=== PATIENT | female | born 1995 | race Caucasian/White ===

== ENCOUNTER 2018-09-06 12:31 | Emergency (ER) | payer OTHER ==
--- NOTE | 2018-09-06 12:46 | EDPHY ---
H & P Stated Complaint: migraine Time Seen by Provider: 09/06/18 12:46 - Personal History LMP (Females 10-55): IUD In Place Current Tetanus Diphtheria and Acellular Pertussis (TDAP): Yes - Medical/Surgical History Hx Asthma: No Hx Chronic Respiratory Disease: No Hx Diabetes: No Hx Cardiac Disease: No Hx Renal Disease: No Hx Cirrhosis: No Hx Alcoholism: No Hx HIV/AIDS: No Other PMH: TONSILECTOMY, OVARIAN CYSTS, CONCUSSION X 5, VOCAL CORD DYSFUNCTION, GASTRITIS, migraines - Social History Smoking Status: Never smoked Constitutional: Initial Vital Signs Temperature (C) 36.9 C 09/06/18 12:39 Heart Rate 67 09/06/18 12:39 Respiratory Rate 16 09/06/18 12:39 Blood Pressure 110/67 09/06/18 12:39 O2 Sat (%) 96 09/06/18 12:39 O2 Delivery Mode Room Air Allergies/Adverse Reactions: No Known Allergies Allergy (Unverified 04/22/18 20:43) Home Medications: Medication Instructions Recorded Excedrin Tablet (*) 04/22/18 Lexapro 04/22/18 Zantac 04/22/18 SUMAtriptan 09/06/18 Medical Decision Making ED Course/Re-evaluation: CHIEF COMPLAINT: "I've had a bad headache migraine" HISTORY OF PRESENT ILLNESS: The patient is a 22 y/o female complaining of a persistent headache that began on Sunday, 3 days ago. Her headache is located in both temples and extends down towards her occiput. The pain came on gradually over the day. She noticed she was "sensitive to everything" especially sound and "felt really overwhelmed. " She has associated nausea and has vomited a couple times. She took Sumatriptan without improvement. She has experienced prior similar headaches and sees a neurologist for the migraines. She believes the headache began due to stress as she has two large tests next week. No fever,body aches, lightheadedness, chest pain, heart palpitations, shortness of breath, cough, abdominal pain, urinary or bowel complaints, numbness, paresthesias. PHYSICAL EXAM: HR, BP, O2 Sat, RR. Temp noted General Appearance: Alert, sitting in a dark room, well hydrated, appropriate, and non-toxic appearing. Head: Atraumatic without scalp tenderness or obvious injury Eyes: Pupils equal, round, reactive to light and accommodation, EOMI, no trauma , no injection. Ears: Clear bilaterally, no perforation, normal landmarks Nose: Atraumatic, no rhinorrhea, clear. Throat: There is no erythema or exudates, no lesions, normal tonsils, mucus membranes moist. Neck: Supple, 2+ carotid upstroke, nontender, no lymphadenopathy. Respiratory: No retractions, no distress, no wheezes, and no accessory muscle use. Lungs are clear to auscultation bilaterally. Cardiovascular: Regular rate and rhythm, no murmurs, rubs, or gallops. Bilateral carotid, radial, dorsalis pedis, and posterior tibial pulses intact. Good capillary refill all extremities. Gastrointestinal: Abdomen is soft, nontender, non-distended, no masses, no rebound, no guarding, no peritoneal signs. Musculoskeletal: Normal active ROM of all extremities, atraumatic. Neurological: Alert, appropriate, and interactive. The patient has normal DTRs and non-focal cranial nerves, motor, sensory, and cerebellar exam. Skin: No rashes, good turgor, no nodules on palpation. Past medical history: Depression, anxiety, ADD, migraines Past surgical history: Denies Family history: Denies Social history: Student at , single, lives in [place] DIAGNOSTICS/PROCEDURES/CRITICAL CARE TIME: Not indicated. DIFFERENTIAL DIAGNOSIS: The differential diagnosis for the patient's headache included but was not limited to subarachnoid hemorrhage, migraine headache, tension headache and infectious causes such as meningitis, pharyngitis and sinusitis. MEDICAL DECISION MAKING: This is a 22 y/o female with a history of migraines (Sumatriptan) who presents with a 2-day history of a migraine headache. She has a completely normal exam although she is sitting in a dark room. No indication for imaging at this time. Plan for IV and symptomatic management with migraine cocktail. 1L IV NS, 25mg IV Benadryl, 10mg IV Reglan, and 30mg IV Toradol. 1330: Reassessed patient, her headache has almost completely resolved and she is no long nauseated. We will continue to observe until her headache has completely resolved. 1405: Reassessed patient. She is feeling completely better, no remaining headaches. Plan to discharge home in good condition with referral to neurologist for further evaluation of her frequent headaches. Return precautions discussed. She is comfortable with this plan. - Data Points Medications Given: Discontinued Medications Diphenhydramine HCl (Benadryl Injection) 25 mg IVP EDNOW ONE Stop: 09/06/18 13:02 Last Admin: 09/06/18 13:15 Dose: 25 mg Ketorolac Tromethamine (Toradol) 30 mg IVP EDNOW ONE Stop: 09/06/18 13:02 Last Admin: 09/06/18 13:17 Dose: 30 mg Methylprednisolone Sodium Succinate (Solu-Medrol) 125 mg IVP EDNOW ONE Stop: 09/06/18 13:02 Last Admin: 09/06/18 13:15 Dose: 125 mg Metoclopramide HCl (Reglan Injection) 10 mg IVP EDNOW ONE Stop: 09/06/18 13:02 Last Admin: 09/06/18 13:16 Dose: 10 mg Departure - Departure Disposition: Home, Routine, Self-Care Clinical Impression: Migraine headache Qualifiers: Migraine type: other Status migrainosus presence: without status migrainosus Intractability: intractable Qualified Code(s): G43.819 - Other migraine, intractable, without status migrainosus Condition: Good Instructions: Migraine Headache (ED), Acute Headache (ED) Additional Instructions: 1. Follow up with your neurologist within the next week to determine if you need to change your migraine medication. 2. Return to the emergency department immediately for recurrence of headache, nausea, vomiting, numbness, weakness, neck pain, fever or other concerns. Referrals: KENNY QUINTERO [Other] - As per Instructions Loy Hoffman MD [Medical Doctor] - As per Instructions Report Scribed for: Huber Weaver Report Scribed by: Courtney Ch Date of Report: 09/06/18 Time of Report: 13:39
[2018-09-06] MEDS ORDERED: methylPREDNISolone SOD SUCC 125 MG/2 ML VIAL IVP ONE (13:01)
[2018-09-06] MEDS ORDERED: METOCLOPRAMIDE 10 MG/2 ML VIAL IVP ONE (13:01)
[2018-09-06] MEDS ORDERED: KETOROLAC 30 MG/1 ML SDV IVP ONE (13:01)
[2018-09-06 14:13] VITALS: BP 99/61
== END 2018-09-06 14:12 | disposition home or self-care (01) ==
DX: G43.819 Other migraine, intractable, without status migrainosus (principal); Z30.430 Encounter for insertion of intrauterine contraceptive device
CPT/HCPCS: 96374; J1200; J1885; J2765; J2930